=== PATIENT | female | born 2005 | race Caucasian/White ===

== ENCOUNTER 2024-03-26 13:48 | Outpatient (CLI) | payer BC ==
[2024-03-26 14:48] LABS: #Basophils Less than 0.03 10x3/uL (0.0-0.2); %Basophils 0.2 % (0.0-1.0); %Eosinophils 2.4 % (0.0-10.0); %Lymphocytes 40.9 % (28.0-48.0); %Monocytes 6.9 % (0.0-4.0); %Neutrophils 49.4 % (31.0-61.0); Hematocrit 37.1 % (36.0-47.0); Hemoglobin 12.3 g/dL (12.0-16.0); Mean Corpuscular HGB CONC 33.2 g/dL (32.0-36.0); Mean Corpuscular Hemoglobin 28.7 pg (25.0-35.0); Mean Corpuscular Volume 86.7 fL (78.0-98.0); Mean Platelet Volume 9.3 fL (7.4-10.4); Platelet Count 334 10x3/uL (130-400); RBC Distribution Width 12.7 % (11.5-14.5); Red Blood Cell (RBC) Count 4.28 mill/uL (4.00-5.20)
[2024-03-26 15:13] LABS: Hemoglobin A1c 5.6 % (4.0-6.0)
[2024-03-26 15:15] LABS: ALT (SGPT) 21 U/L (8-55); AST (SGOT) 19 U/L (5-30); Albumin 3.7 g/dL (3.5-5.0); Alkaline Phosphatase 90 U/L (40-100); Anion Gap 12 mmol/L (10-20); BHCG - Serum Negative (NEGATIVE); BUN (Urea Nitrogen) 13 mg/dL (8.4-21.0); Bilirubin, Total 0.2 mg/dL (0.2-1.2); Calc. Creatinine Clearance 0 mL/min (70-130); Carbon Dioxide 22 mmol/L (22-29); Chloride 108 mmol/L (98-107); Estimated GFR 128; Globulin 3.1 g/dL (2.4-3.5); Glucose 98 mg/dL (70-105); Potassium 4.2 mmol/L (3.5-5.1); Pregs Control Background? CLEAR/WHITE (CLR/WHITE); Pregs Control Bar Appear? YES (CONTROL BAR); Protein, Total 6.8 g/dL (6.0-8.3); Sodium 138 mmol/L (136-145)
== END 2024-03-26 13:49 | disposition home or self-care (01) ==
LOC: LABBT 13:48
PROVIDERS: ATTEND Surgery
DX: Z01.812 Encounter for preprocedural laboratory examination (principal); E66.01 Morbid (severe) obesity due to excess calories
CPT/HCPCS: 80053; 83036; 84703; 85025

== ENCOUNTER → 2024-03-31 | Day surgery (SDC) | payer BC ==
[2024-03-26 14:25] VITALS: BMI 44.4
[~2024-03-31] MED LIST: CEFAZOLIN 2 GM VIAL ONE; Heparin 5,000 UNITS/ML VIAL ONE; Lidocaine 1% PF 5 ML VIAL ONE; PROPOFOL 0 ML ONE; Rocuronium Bromide 10 MG/ML (10ML VIAL) ONE; Rocuronium Bromide 50 MG/5 ML VIAL ONE; Sodium Chloride 0.9% 0 ML ONE
== END ==
LOC: SDC 08:35
PROVIDERS: ATTEND Surgery
DX: E66.01 Morbid (severe) obesity due to excess calories (principal); Z53.9 Procedure and treatment not carried out, unspecified reason; Z68.54 Body mass index [BMI] pediatric, 95th percentile for age to less than 120% of the 95th percentile for age; Z79.899 Other long term (current) drug therapy
CPT/HCPCS: J1644; J2704